=== PATIENT | female | born 1995 | race Caucasian/White ===

== ENCOUNTER 2022-10-29 06:09 | Inpatient (IN) ==
[2022-10-29] MEDS ORDERED: Lactated Ringers 1000 ml BAG 1,000 ML IV ONE ×2 (06:57→10:06)
[2022-10-29] MEDS ORDERED: Nalbuphine 10 MG/ML 1 ML VIAL IV PRN (06:57)
[2022-10-29] MEDS ORDERED: Buffered Lidocaine 1% SYRIN 1 ml INTRADERM ONE (06:57)
[2022-10-29] MEDS ORDERED: Promethazine INJ(RESTRICTED) 25 MG/ML 1 ml VIAL IV PRN (06:57)
[2022-10-29 07:27] LABS: ABS Lymphocytes 1.4 10^3/ul (1.0-4.8); ABS Monocytes 0.7 10^3/ul (0-0.8); ABS Neutrophils 10.2 10^3/ul (1.5-7.7); Eosinophil % 0.2 %; Hematocrit 37 % (35-47); Hemoglobin 12.6 g/dL (12.0-16.0); Lymphocyte % 11.5 %; Mean Corpuscular HGB Conc 34 g/dL (31-36); Mean Corpuscular Hemoglobin 28 pg (27-31); Mean Corpuscular Volume 83 fL (80-97); Mean Platelet Volume 7.6 fL (7.4-10.4); Platelet Count 270 10^3/uL (150-450); Red Blood Count 4.49 10^6 /uL (3.70-4.87); Red Cell Distribution Width 15 % (10-15); White Blood Count 12.4 10^3/uL (3.5-10.8)
[2022-10-29 07:46] LABS: Urine Benzodiazepine Screen None Detected (None Detect); Urine Opiates Screen None Detected (None Detect)
[2022-10-29] MEDS ORDERED: OBEPIDURAL (200 ML) 200 ML EPIDURAL ONE (09:12)
[2022-10-29] MEDS ORDERED: Lidocaine 1.5% EPI 1:200,000 30 ML SDV ONE (09:12)
[2022-10-29] MEDS: Lactated Ringers 1000 ml BAG 1,000 ML IV SCH ×3 (09:35→22:21)
[2022-10-29] MEDS ORDERED: Sodium Citrate/Citric Acid LIQ 15 ML UDC PO PRN (10:06)
[2022-10-29] MEDS ORDERED: Phenylephrine 40 mcg/mL 10mL (400mcg) SYRINGE IV PUSH PRN ×2 (10:06)
[2022-10-29] MEDS ORDERED: Lactated Ringers 1000 ml BAG 1,000 ML IV SCH (11:00)
[2022-10-29] MEDS ORDERED: OBEPIDURAL (200 ML) 200 ML EPIDURAL SCH (11:00)
[2022-10-29 11:21] LABS: Urine Appearance Clear; Urine Bilirubin Negative (Negative); Urine Blood Negative (Negative); Urine Color Yellow; Urine Glucose Negative (Negative); Urine Ketones Trace (Negative); Urine Nitrite Negative (Negative); Urine Protein 1+(30 mg/dL) (Negative); Urine Specific Gravity 1.023 (1.002-1.030); Urine Urobilinogen Negative (Negative)
[2022-10-29 11:24] LABS: Urine Bacteria Absent (Absent); Urine Red Blood Cell Trace(0-2/hpf) (Absent); Urine White Blood Cell Absent (Absent)
[2022-10-29] MEDS ORDERED: Oxytocin in LR 20,000 MILLI.UNIT/1,000 ML BAG IV SCH (14:45)
[2022-10-30] MEDS ORDERED: Lidocaine 2% w/ EPI 1:200,000 MPF 20 ML SDV VIAL ONE ×3 (00:52→02:58)
[2022-10-30] MEDS ORDERED: fentaNYL 100 mcg/2 ml 50 MCG/ML VIAL ONE ×2 (00:52→02:58)
[2022-10-30] MEDS ORDERED: ceFOXitin 2 GM IVPREMIX 2 GM/50 ML BAG ONE (02:44)
[2022-10-30] MEDS ORDERED: Metoclopramide 5 MG/ML VIAL (10 mg) IV PRN (03:24)
[2022-10-30] MEDS ORDERED: Naloxone 0.4 mg VIAL 0.4 mg/ml 1 ml VIAL IV PUSH PRN (03:24)
[2022-10-30] MEDS ORDERED: Ondansetron 4 mg VIAL 2 MG/ML 2 ml VIAL IV PRN (03:24)
[2022-10-30] MEDS ORDERED: Acetaminophen IV 1 GM/100ML 1,000 MG/100 ML BAG IV PRN (03:24)
[2022-10-30] MEDS ORDERED: Morphine PF AMP (0.5MG/ML) 5 MG/10 ML AMP ONE (03:34)
[2022-10-30] MEDS ORDERED: Dexamethasone IV 4 MG/ML VIAL 1 ml VIAL ONE (03:52)
[2022-10-30] MEDS ORDERED: Oxytocin 10 UNITS/ML 1 ML VIAL ONE ×2 (03:52→04:09)
[2022-10-30] MEDS ORDERED: Ondansetron 4 mg VIAL 2 MG/ML 2 ml VIAL ONE (03:52)
[2022-10-30] MEDS ORDERED: Witch Hazel PAD JAR TOPICAL PRN (04:29)
[2022-10-30] MEDS ORDERED: Dibucaine 1% OINT 28.35 GM TUBE PR PRN (04:29)
[2022-10-30] MEDS ORDERED: Glycerin ADULT 2.4 gm SUPP PR PRN (04:29)
[2022-10-30] MEDS ORDERED: Oxytocin in LR 20,000 MILLI.UNIT/1,000 ML BAG IV SCH (04:30)
[2022-10-30] MEDS ORDERED: Lactated Ringers 1000 ml BAG 1,000 ML IV SCH (05:00)
[2022-10-31 07:37] LABS: ABS Lymphocytes 1.2 10^3/ul (1.0-4.8); ABS Monocytes 0.5 10^3/ul (0-0.8); ABS Neutrophils 12.7 10^3/ul (1.5-7.7); Eosinophil % 0.3 %; Hematocrit 28 % (35-47); Hemoglobin 9.2 g/dL (12.0-16.0); Lymphocyte % 8.6 %; Mean Corpuscular HGB Conc 33 g/dL (31-36); Mean Corpuscular Hemoglobin 28 pg (27-31); Mean Corpuscular Volume 84 fL (80-97); Mean Platelet Volume 7.2 fL (7.4-10.4); Platelet Count 185 10^3/uL (150-450); Red Cell Distribution Width 15 % (10-15); White Blood Count 14.4 10^3/uL (3.5-10.8)
[2022-11-02 10:23] VITALS: BP 117/72
[2022-11-02] MEDS ORDERED: Varicella Virus Vaccine Live 0.5 ML VIAL SUBCUT ONE (12:00)
== END 2022-11-02 14:50 | disposition home or self-care (01) | DRG 788 ==
LOC: MCHOBOUT 06:09 → MCHOB 06:48
PROVIDERS: ADMIT Registered Nurse; ATTEND Registered Nurse